=== PATIENT | female | born 1980 | race Hispanic/Latino ===

== ENCOUNTER 2020-01-05 12:30 | Emergency (ER) | payer OTHER ==
[~2020-01-05] VITALS: Ht 170.2 cm; Wt 95.3 kg
[2020-01-05] MEDS ORDERED: IBUPROFEN 600 MG TAB PO STA (12:40)
[2020-01-05] MEDS ORDERED: TETRACAINE HCL 0.5% OPTH SOLN 4 ML BTL ONE (12:51)
[2020-01-05] MEDS ORDERED: FLUORESCEIN SOD(OPTH) 1 MG STRP ONE (12:51)
--- NOTE | 2020-01-05 12:55 | Emergency Department Note ---
History of Present Illnes History of Present Illness Chief Complaint: Head/Face Trauma History of Present Illness This is a 39 year old female Chief Complaint Comment PT WAS PULLING ON METAL POLE AND IT CAME LOOSE AND HIT PT ON RIGHT SIDE OF FACE/JAW. She was sent to the ER for examination. No vision changes. No other concerns. Historian: Patient Arrival Mode: Car Boxcar Weigher Required: No Onset (how long ago): day(s) (2) Location: R per-orbital area Quality: Dull pain Radiation: Reports non-radiation Severity: mild Onset quality: sudden Duration (how long): day(s) (2) Timing of current episode: constant Progression: unchanged Chronicity: new Context: Denies recent illness, Denies recent surgery Relieving factors: none Exacerbating factors: none Associated symptoms: Reports denies other symptoms Treatments prior to arrival: none Past Medical/Family History Physician Review I have reviewed the patient's past medical and family history. Any updates have been documented here. Past Medical History Recent Fever: No Clinical Suspicion of Infectio: No New/Unexplained Change in Ment: No Past Medical History: None Past Surgical History: None Social History Smoking Cessation: Never Smoker Counseling Performed: No Alcohol Use: Occasional Any Illegal Drug Use: No Physically hurt or threatened: No Other Any Pre-Existing Lines (PICC,: No Review of Systems Review of Systems Constitutional: Reports no symptoms EENTM: Reports as per HPI Cardiovascular: Reports no symptoms Respiratory: Reports no symptoms Gastrointestinal: Reports no symptoms Genitourinary: Reports no symptoms Musculoskeletal: Reports no symptoms Integumentary: Reports no symptoms Neurological: Reports no symptoms Psychological: Reports no symptoms Endocrine: Reports no symptoms Hematological/Lymphatic: Reports no symptoms Physical Exam Related Data Allergies: Coded Allergies: No Known Allergies (Unverified , 01/05/20) Triage Vital Signs Vital Signs Date Time Temp Pulse Resp B/P (MAP) Pulse Ox O2 Delivery O2 Flow Rate FiO2 01/05/20 12:35 98.1 64 20 160/104 100 Room Air Vital signs reviewed: Yes Physical Exam CONSTITUTIONAL Constitutional: Present well-developed, Present well-nourished HENT HENT: Present normocephalic, Present oropharynx clear/moist, Present nose normal; Absent atraumatic (Mild bruising to temporal side of R orbit. EOMI intact, visual acuity intact. No fluorescin uptake. No signs of occular trauma) HENT L/R: Present left ext ear normal, Present right ext ear normal EYES Eyes: Reports PERRL, Reports conjunctivae normal NECK Neck: Present ROM normal PULMONARY Pulmonary: Present effort normal, Present breath sounds normal CARDIOVASCULAR Cardiovascular: Present regular rhythm, Present heart sounds normal, Present capillary refill normal, Present normal rate GASTROINTESTINAL Abdominal: Present soft, Present nontender, Present bowel sounds normal GENITOURINARY Genitourinary: Present exam deferred SKIN Skin: Present warm, Present dry MUSCULOSKELETAL Musculoskeletal: Present ROM normal NEUROLOGICAL Neurological: Present alert, Present oriented x 3, Present no gross motor or sensory deficits PSYCHOLOGICAL Psychological: Present mood/affect normal, Present judgement normal Assessment & Plan Medical Decision Making MDM 39-year-old female presents for injury to the temporal side of her right orbit. Extra ocular muscles are intact, no fluorescein uptake, benign eye exam is noted and physical exam. Mild swelling and small bruise to the temporal aspect of the right orbit. Teeth are well aligned and no signs to indicate emergent imaging. Discussed results patient and she will use Avapro, Tylenol, ice packs for pain. Patient appropriate for discharge. Assessment & Plan Final Impression: (1) Contusion Depart Disposition: HOME, SELF-CARE Last Vital Signs Date Time Temp Pulse Resp B/P (MAP) Pulse Ox O2 Delivery O2 Flow Rate FiO2 01/05/20 12:35 98.1 64 20 160/104 100 Room Air Medications in the ED Ibuprofen 600 mg ONCE STAT PO Last administered on 01/05/20at 12:48; Admin Dose 600 MG; Start 01/05/20 at 12:40; Stop 01/05/20 at 12:44; Status DC Tetracaine HCl 4 ml STK-MED ONCE .ROUTE ; Start 01/05/20 at 12:51; Stop 01/05/20 at 12:44; Status DC Fluorescein Sodium 1 mg STK-MED ONCE .ROUTE ; Start 01/05/20 at 12:51; Stop 01/05/20 at 12:44; Status DC Tetracaine HCl 1 ml ONCE ONCE OP ; Start 01/05/20 at 13:00; Stop 01/05/20 at 13:01; Status UNV Fluorescein Sodium 1 mg ONCE ONCE OP ; Start 01/05/20 at 13:00; Stop 01/05/20 at 13:01; Status UNV COLETTE RODRIGUEZ MD Jan 05, 2020 12:54
[2020-01-05] MEDS ORDERED: TETRACAINE HCL 0.5% OPTH SOLN 4 ML BTL OP ONE (13:00)
[2020-01-05] MEDS ORDERED: FLUORESCEIN SOD(OPTH) 1 MG STRP OP ONE (13:00)
== END 2020-01-05 13:23 | disposition home or self-care (01) ==
LOC: ER 12:41
DX: S05.11XA Contusion of eyeball and orbital tissues, right eye, initial encounter (principal); W22.8XXA Striking against or struck by other objects, initial encounter; X50.9XXA Other and unspecified overexertion or strenuous movements or postures, initial encounter
CPT/HCPCS: 99282